=== PATIENT | female | born 1995 | race Caucasian/White ===

== ENCOUNTER 2019-01-30 14:37 | Emergency (ER) | payer MEDICAID ==
[~2019-01-30] VITALS: Ht 162.6 cm; Wt 89.8 kg
[2019-01-30 14:48] VITALS: BP 133/85
--- NOTE | 2019-01-30 14:53 | NUR ---
PT AMBULATED TO ED [facility]
--- NOTE | 2019-01-30 16:15 | NUR ---
PT TO BED 11 WITH STEADY GAIT
--- NOTE | 2019-01-30 16:30 | NUR ---
23/F c/o left index pain today after having finger slammed in car door. Abrasion noted to left index. no deformity present. CMS intact.
[2019-01-30] MEDS ORDERED: BACITRACIN OINT 500 UNITS/GM PKT TP ONE (16:35)
[2019-01-30 16:42] VITALS: BP 133/85
--- NOTE | 2019-01-30 16:42 | NUR ---
Patient discharged with v/s stable. Written and verbal after care instructions given and explained. Patient verbalized understanding. Ambulatory with steady gait. All questions addressed prior to discharge. Advised to follow up with PMD.
== END 2019-01-30 16:42 | disposition home or self-care (01) ==
LOC: MED 14:37
DX: S60.411A Abrasion of left index finger, initial encounter (principal); W23.0XXA Caught, crushed, jammed, or pinched between moving objects, initial encounter; Y93.89 Activity, other specified; Y92.89 Other specified places as the place of occurrence of the external cause; Y99.8 Other external cause status
CPT/HCPCS: 73140; 99283

== ENCOUNTER 2020-04-01 10:42 | Emergency (ER) | payer MEDICAID ==
[~2020-04-01] VITALS: Ht 162.6 cm; Wt 95.3 kg
[2020-04-01 10:52] VITALS: BP 125/75
--- NOTE | 2020-04-01 10:58 | NUR ---
C/O MID UPPER BACK PAIN & BUTTOCKS PAIN S/P FALL X YESTEWRDAY. PMH: C SECTION
--- NOTE | 2020-04-01 11:01 | NUR ---
Urine collected from patient at this time
[2020-04-01] MEDS ORDERED: KETOROLAC 60 MG/2 ML VIAL IM ONE (11:15)
[2020-04-01 12:37] VITALS: BP 125/75
--- NOTE | 2020-04-01 12:38 | NUR ---
Patient discharged with v/s stable. Written and verbal after care instructions given and explained. Patient alert, oriented and verbalized understanding of instructions. Ambulatory with steady gait. All questions addressed prior to discharge. ID band removed. Patient advised to follow up with PMD. Rx of Robaxin 500mg, Tramadol 50, and Motrin 800mg given. Patient educated on indication of medication including possible reaction and side effects. Opportunity to ask questions provided and answered.
== END 2020-04-01 12:38 | disposition home or self-care (01) ==
LOC: MED 10:42
DX: S39.012A Strain of muscle, fascia and tendon of lower back, initial encounter (principal); W18.39XA Other fall on same level, initial encounter; Y93.89 Activity, other specified; Y92.89 Other specified places as the place of occurrence of the external cause; Y99.8 Other external cause status
CPT/HCPCS: 72080; 81002; 81025; 96372; 99283; J1885